=== PATIENT | female | born 1945 | race Caucasian/White ===

== ENCOUNTER 2020-02-21 12:33 | Observation (INO) | payer MEDICARE, BC ==
[2020-02-21] MEDS ORDERED: fentaNYL 100 MCG/2 ML SDV IVPUSH PRN (12:49)
--- NOTE | 2020-02-21 13:01 | EDM.PDOC ---
ED HPI GENERAL MEDICAL PROBLEM - General Chief Complaint: General Stated Complaint: Fall R Shoulder Pain Time Seen by Provider: 02/21/20 12:35 Source of Information: Reports: Patient History Limitations: Reports: No Limitations - History of Present Illness INITIAL COMMENTS - FREE TEXT/NARRATIVE: Quynh is a 74 year old female who presents to ER per EMS after a fall from a chair. Was standing up on the chair hanging [employer] decorations at the cafe in [place]. Lost her balance and fell, landing on her right side. Does have neck pain but admits "may also be from watching TV last night as it was achy this am". Has pain to right shoulder. Was unable to get up from the floor due to shoulder concern. Denies shortness of breath, chest discomfort, nausea or vomiting. No pain in hips or pelvis. Did not hit her head, no loss of consciousness. Fall was witnessed. GCS 15 Onset: Today, Sudden Duration: Minutes:, Constant Location: Reports: Neck, Upper Extremity, Right Quality: Reports: Sharp Severity: Moderate Improves with: Reports: Rest Worsens with: Reports: Movement Associated Symptoms: Denies: Confusion, Chest Pain, Cough, Fever/Chills, Loss of Appetite, Nausea/Vomiting, Shortness of Breath, Syncope Treatments ETL CONSULTANT: Reports: Cervical Collar r shoulder Pain Score (Numeric/FACES): 8 - Related Data Allergies Allergy/AdvReac Type Severity Reaction Status Date / Time cyclobenzaprine Allergy Other Verified 02/21/20 13:06 [From Flexeril] lisinopril Allergy Cough Verified 02/21/20 13:06 Home Meds: Home Meds Levothyroxine 112 mcg PO DAILY 08/15/13 [History] Vit B Cmplx 3/Fa/Vit C/Biotin [Elisabeth-Edwige Rx Tablet] 1 tab PO DAILY 08/15/13 [History] Sertraline [Zoloft] 50 mg PO BEDTIME 09/21/13 [History] ClonazePAM [KlonoPIN] 0.5 mg PO TID PRN 09/23/13 [History] Zolpidem [Ambien] 5 mg PO BEDTIME 09/23/13 [History] Losartan [Cozaar] 50 mg PO DAILY #30 tablet 09/27/13 [Rx] Magnesium Chloride [Mag-64] 64 mg PO DAILY #14 tab.er 09/27/13 [Rx] ED ROS GENERAL - Review of Systems Review Of Systems: See Below Constitutional: Denies: Fever, Chills, Malaise, Weakness, Decreased Appetite HEENT: Denies: Ear Discharge, Ear Pain, Nosebleed, Throat Pain Respiratory: Denies: Shortness of Breath, Cough Cardiovascular: Denies: Chest Pain, Edema, Lightheadedness Endocrine: Denies: Fatigue GI/Abdominal: Denies: Abdominal Pain, Nausea, Vomiting : Reports: No Symptoms Musculoskeletal: Reports: Neck Pain, Shoulder Pain Skin: Reports: Bruising Neurological: Denies: Headache Psychiatric: Reports: No Symptoms ED EXAM, GENERAL - Physical Exam Exam: See Below Exam Limited By: No Limitations General Appearance: Alert, WD/WN, Mild Distress Eye Exam: Bilateral Eye: EOMI, PERRL Ears: Normal External Exam, Normal TMs Nose: Normal Inspection, Normal Mucosa, No Blood Throat/Mouth: Normal Inspection, Normal Oropharynx Head: Atraumatic, Normocephalic Neck: Normal Inspection, Supple, Other (cervical collar intact) Respiratory/Chest: No Respiratory Distress, Lungs Clear, Normal Breath Sounds Cardiovascular: Regular Rate, Rhythm GI/Abdominal: Normal Bowel Sounds, Soft, Non-Tender Extremities: Other (right shoulder deformity, swelling and bruising noted. Able to shrug shoulder but unable to raise arm due to pain. ) Neurological: Alert, Oriented Course - Vital Signs Last Recorded V/S: Last Vital Signs Temp 98.3 F 02/21/20 12:55 Pulse 74 02/21/20 14:01 Resp 18 02/21/20 14:01 BP 157/64 H 02/21/20 14:01 Pulse Ox 96 02/21/20 14:01 - Orders/Labs/Meds Orders: Active Orders 24 hr Category Date Time Status Cervical Spine wo Cont [CT] Stat Exams 02/21/20 12:49 Taken Shoulder Comp Rt [CR] Stat Exams 02/21/20 12:49 Taken fentaNYL [Sublimaze] Med 02/21/20 12:49 Active 50 mcg IVPUSH Q6H PRN Medication Orders Fentanyl (Sublimaze) 50 mcg IVPUSH Q6H PRN PRN Reason: Pain Last Admin: 02/21/20 12:55 Dose: 50 mcg Documented by: CECILLE Labs: Laboratory Tests 02/21/20 Range/Units 13:40 SARS CoV-2 RNA Rapid GERALDO Negative (NEGATIVE) Meds: Medications Generic Name Dose Route Start Last Admin Trade Name Freq PRN Reason Stop Dose Admin Fentanyl 50 mcg 02/21/20 12:49 02/21/20 12:55 Sublimaze IVPUSH 50 mcg Q6H PRN Administration Pain Discontinued Medications Generic Name Dose Route Start Last Admin Trade Name Freq PRN Reason Stop Dose Admin Hydrocodone Bitart/Acetaminophen 1 tab 02/21/20 13:50 02/21/20 14:00 [place] 325-5 Mg PO 02/21/20 13:51 1 tab ONETIME ONE Administration - Re-Assessments/Exams Free Text/Narrative Re-Assessment/Exam: 02/21/20 13:28 Xrays note displaced humerus fracture. Contacted Dr. Barfield, films sent. 02/21/20 14:52 C-Spine cleared. Collar removed. Patient sat up to apply immobilizer, got syncopal, blood pressure dropped to 110 systolic. Laid back down, pale and diaphoretic. Patient was to be discharged home with son but will now be admitted observation. Departure - Departure Time of Disposition: 14:54 Disposition: Refer to Observation Condition: Fair Clinical Impression: Near syncope Right humeral fracture Qualifiers: Encounter type: initial encounter Humerus Location: proximal Fracture type: closed Fracture alignment: displaced - Discharge Information *PRESCRIPTION DRUG MONITORING PROGRAM REVIEWED*: Not Applicable *COPY OF PRESCRIPTION DRUG MONITORING REPORT IN PATIENT ADRIANA: Not Applicable Forms: ED Department Discharge Sepsis Event Note (ED) - Focused Exam Vital Signs: Vital Signs Temp Pulse Resp BP Pulse Ox 02/21/20 14:01 74 18 157/64 H 96 02/21/20 12:55 98.3 F 88 18 179/86 H 98 - Problem List & Annotations (1) Near syncope SNOMED Code(s): 339053135 Code(s): R55 - SYNCOPE AND COLLAPSE Status: Acute Priority: High Current Visit: Yes (2) Right humeral fracture SNOMED Code(s): 13725041 Code(s): S42.301A - UNSP FRACTURE OF SHAFT OF HUMERUS, RIGHT ARM, INIT Status: Acute Priority: High Current Visit: Yes Qualifiers: Encounter type: initial encounter Humerus Location: proximal Fracture type: closed Fracture alignment: displaced - Problem List Review Problem List Initiated/Reviewed/Updated: Yes - My Orders Last 24 Hours: My Active Orders 02/21/20 12:49 Cervical Spine wo Cont [CT] Stat Shoulder Comp Rt [CR] Stat fentaNYL [Sublimaze] 50 mcg IVPUSH Q6H PRN - Assessment/Plan Admission H&P: Please use this note as an admission H&P Last 24 Hours: My Active Orders 02/21/20 12:49 Cervical Spine wo Cont [CT] Stat Shoulder Comp Rt [CR] Stat fentaNYL [Sublimaze] 50 mcg IVPUSH Q6H PRN Assessment:: 1. Near Syncope 2. Humeral Fracture Plan: Patient will be admitted observation for pain control, cardiac monitoring due to fracture and near syncopal episode.
[2020-02-21] MEDS ORDERED: Acetaminophen/HYDROcodone 325-5 MG Tab PO ONE (13:50)
[2020-02-21] MEDS ORDERED: Acetaminophen 325 MG Tab PO PRN (15:42)
[2020-02-21] MEDS ORDERED: Enoxaparin 30 MG/0.3 ML Syringe SUBCUT SCH (15:42)
[2020-02-21] MEDS ORDERED: Non-Formulary Medication 1 Each (Clonazepam [Klonopin] 0.5 MG) PO PRN (15:45)
[2020-02-21] MEDS ORDERED: Sodium Chloride 0.9% 1,000 ML IV SCH (16:00)
[2020-02-21] MEDS ORDERED: Temazepam 15 MG Cap PO PRN (16:51)
[2020-02-21] MEDS: amLODIPine 2.5 MG Tab PO SCH (17:33)
[2020-02-21] MEDS: Acetaminophen/HYDROcodone 325-5 MG Tab PO PRN (18:48)
[2020-02-21] MEDS ORDERED: Non-Formulary Medication 1 Each (Sertraline [Zoloft] 50 MG) PO SCH (20:00)
[2020-02-21] MEDS ORDERED: Doxazosin 2 MG Tab PO SCH (20:00)
[2020-02-21] MEDS ORDERED: Non-Formulary Medication 1 Each (Zolpidem 5 MG) PO SCH (20:00)
[2020-02-21] MEDS ORDERED: PRAVASTATIN 20MG TAB PO SCH (20:00)
[2020-02-21] MEDS ORDERED: traZODone 50 MG Tab PO SCH (20:00)
[2020-02-22] MEDS: Acetaminophen/HYDROcodone 325-5 MG Tab PO PRN ×2 (00:13→07:18)
--- NOTE | 2020-02-22 07:42 | PCM.DCSUM1 ---
Discharge Summary - Hospital Course HPI Initial Comments: Quynh is a 74 yo female who was admitted to the hospital yesterday after sustaining a right humerus fracture. Patient had a near syncopal episode when getting shoulder immobilizer placed and elected to be admitted for pain control/close observation. Quynh had an uneventful night. No syncopal episodes. Pain controlled with hydrocodone. - Discharge Data Discharge Date: 02/22/20 Discharge Disposition: Home, Self-Care 01 Condition: Good - Referral to Home Health Primary Care Physician: Christa Garcia MD - Discharge Diagnosis/Problem(s) (1) Right humeral fracture SNOMED Code(s): 52833509 ICD Code: S42.301A - UNSP FRACTURE OF SHAFT OF HUMERUS, RIGHT ARM, INIT Status: Acute Priority: High Current Visit: Yes Qualifiers: Encounter type: initial encounter Humerus Location: proximal Fracture type: closed Fracture alignment: displaced - Patient Summary/Data Consults: Dr. Adryan Barfield, [facility] at 8:30am today Hospital Course: Quynh had an uneventful hospital stay. No further near syncopal episodes. Pain controlled with hydrocodone. Has been ambulating without difficulty. Shoulder immobilizer provides relief. - Patient Instructions Diet: Usual Diet as Tolerated Activity: As Tolerated Activity, Other: immobilizer to right arm Showering/Bathing: May Shower - Discharge Plan *PRESCRIPTION DRUG MONITORING PROGRAM REVIEWED*: Not Applicable *COPY OF PRESCRIPTION DRUG MONITORING REPORT IN PATIENT ADRIANA: Not Applicable Prescriptions/Med Rec: Hydrocodone/Acetaminophen [Hydrocodone-Acetamin 5-325 mg] 1 tab PO Q4HR PRN #30 tablet PRN Reason: Pain traZODone HCl [Trazodone HCl] 50 mg PO BEDTIME #30 tablet Home Medications: Home Meds Levothyroxine 112 mcg PO DAILY 08/15/13 [History] Vit B Cmplx 3/Fa/Vit C/Biotin [Elisabeth-Edwige Rx Tablet] 1 tab PO DAILY 08/15/13 [History] ClonazePAM [KlonoPIN] 0.5 mg PO TID PRN 09/23/13 [History] Losartan [Cozaar] 50 mg PO DAILY #30 tablet 09/27/13 [Rx] Magnesium Chloride [Mag-64] 64 mg PO DAILY #14 tab.er 09/27/13 [Rx] Doxazosin [Cardura] 2 mg PO BEDTIME 02/21/20 [History] Hydrocodone/Acetaminophen [Hydrocodone-Acetamin 5-325 mg] 1 tab PO Q4HR PRN #30 tablet 02/22/20 [Rx] Metoprolol Succinate [Toprol XL] 50 mg PO DAILY tab.er 02/22/20 [Rx] Temazepam [Restoril] 15 mg PO BEDTIME PRN cap 02/22/20 [Rx] Venlafaxine [Effexor XR] 75 mg PO DAILY cap.er 02/22/20 [Rx] amLODIPine [Norvasc] 5 mg PO DAILY tablet 02/22/20 [Rx] traZODone HCl [Trazodone HCl] 50 mg PO BEDTIME #30 tablet 02/22/20 [Rx] Oxygen Therapy Mode: Room Air Forms: ED Department Discharge - Discharge Summary/Plan Comment DC Time >30 min.: Yes Discharge Summary/Plan Comment: Patient will be discharged this am as she has an appointment at [facility] with orthopedics in [place] at 8:30 for further evaluation/surgical intervention. - General Info Date of Service: 02/22/20 Functional Status: Reports: Pain Controlled, Ambulating. Denies: New Symptoms - Review of Systems General: Reports: No Symptoms HEENT: Reports: No Symptoms Pulmonary: Reports: No Symptoms Cardiovascular: Reports: No Symptoms Gastrointestinal: Reports: No Symptoms Genitourinary: Reports: No Symptoms Musculoskeletal: Reports: Neck Pain, Shoulder Pain Skin: Reports: No Symptoms Neurological: Reports: No Symptoms Psychiatric: Reports: No Symptoms - Patient Data Vitals - Most Recent: Last Vital Signs Temp 99 F 02/22/20 03:21 Pulse 76 02/22/20 03:21 Resp 18 02/22/20 03:21 BP 138/59 L 02/22/20 03:21 Pulse Ox 93 L 02/22/20 03:21 Weight - Most Recent: 189 lb 6 oz Lab Results - Last 24 hrs: Laboratory Results - last 24 hr 02/21/20 Range/Units 13:40 SARS CoV-2 RNA Rapid GERALDO Negative (NEGATIVE) Med Orders - Current: Current Medications Acetaminophen (Tylenol) 650 mg PO Q4H PRN PRN Reason: Pain (Mild 1-3)/fever Hydrocodone Bitart/Acetaminophen ([place] 325-5 Mg) 1 - 2 tab PO Q6H PRN PRN Reason: Pain (moderate 4-6) Last Admin: 02/22/20 07:18 Dose: 1 tab Documented by: Amlodipine Besylate (Norvasc) 5 mg PO DAILY [facility] Last Admin: 02/21/20 17:33 Dose: Not Given Documented by: Doxazosin Mesylate (Cardura) 2 mg PO QPM [facility] Last Admin: 02/21/20 19:32 Dose: 2 mg Documented by: Enoxaparin Sodium (Lovenox) 30 mg SUBCUT Q24H [facility] Last Admin: 02/21/20 16:54 Dose: Not Given Documented by: Fentanyl (Sublimaze) 50 mcg IVPUSH Q6H PRN PRN Reason: Pain Last Admin: 02/21/20 12:55 Dose: 50 mcg Documented by: Sodium Chloride (Normal Saline) 1,000 mls @ 75 mls/hr IV ASDIRECTED [facility] Last Admin: 02/21/20 21:11 Dose: 75 mls/hr Documented by: Losartan Potassium (Cozaar) 100 mg PO DAILY [facility] Metoprolol Succinate (Toprol Xl) 50 mg PO DAILY [facility] Multivitamins/Minerals/Vitamin C (Tab-A-Edwige) 1 tab PO DAILY [facility] Levothyroxine 137 (Mcg Tab) 0 each PO DAILY [facility] Pravastatin 20mg Tab 0 each PO QPM [facility] Last Admin: 02/21/20 19:33 Dose: Not Given Documented by: Temazepam (Restoril) 15 mg PO BEDTIME PRN PRN Reason: Insomnia Trazodone HCl (Trazodone) 50 mg PO QPM [facility] Last Admin: 02/21/20 19:33 Dose: 50 mg Documented by: Venlafaxine HCl (Effexor Xr) 75 mg PO DAILY [facility] Discontinued Medications Hydrocodone Bitart/Acetaminophen ([place] 325-5 Mg) 1 tab PO ONETIME ONE Stop: 02/21/20 13:51 Last Admin: 02/21/20 14:00 Dose: 1 tab Documented by: Magnesium Chloride (Mag-64) 64 mg PO DAILY [facility] Non-Formulary Medication (Clonazepam [Klonopin]) 0.5 mg PO TID PRN PRN Reason: Anxiety Non-Formulary Medication (Sertraline [Zoloft]) 50 mg PO BEDTIME [facility] Non-Formulary Medication (Zolpidem) 5 mg PO BEDTIME [facility] - Exam General: Reports: Alert, Oriented, Cooperative, No Acute Distress, Other (sitting up at edge of hospital bed) Lungs: Reports: Clear to Auscultation, Normal Respiratory Effort Cardiovascular: Reports: Regular Rate, Regular Rhythm GI/Abdominal Exam: Normal Bowel Sounds, Soft Extremities: Normal Capillary Refill, Arm Pain, Limited Range of Motion Skin: Reports: Warm, Dry, Intact Wound/Incisions: Reports: Healing Well Neurological: Reports: No New Focal Deficit Psy/Mental Status: Reports: Alert, Normal Affect, Normal Mood
[2020-02-22] MEDS ORDERED: Magnesium Chloride 64 MG Tab.ER PO SCH (08:00)
[2020-02-22] MEDS ORDERED: Venlafaxine 75 MG Cap.ER PO SCH (08:00)
[2020-02-22] MEDS ORDERED: Metoprolol Succinate 25 MG Tab.ER PO SCH (08:00)
[2020-02-22] MEDS ORDERED: Multivitamin Tab PO SCH (08:00)
[2020-02-22] MEDS ORDERED: LEVOTHYROXINE 137 MCG TAB PO SCH (08:00)
[2020-02-22] MEDS ORDERED: Losartan 100 MG Tab PO SCH (08:00)
[2020-02-22] MEDS: amLODIPine 2.5 MG Tab PO SCH (08:05)
== END 2020-02-22 07:45 | disposition home or self-care (01) ==
LOC: CC.ED 12:33 → CC.MS 15:06 → UNDOADMOB 15:09 → CC.MS 15:09
PROVIDERS: ADMIT Physician Assistant Medical; ATTEND Family Medicine
DX: S42.301A Unspecified fracture of shaft of humerus, right arm, initial encounter for closed fracture (principal); R55 Syncope and collapse; Z20.828 Contact with and (suspected) exposure to other viral communicable diseases; W07.XXXA Fall from chair, initial encounter; Y93.89 Activity, other specified; Y92.9 Unspecified place or not applicable; Z88.8 Allergy status to other drugs, medicaments and biological substances; Z79.899 Other long term (current) drug therapy
CPT/HCPCS: 72125; 73030-RT; 96374; 99217; 99220; 99285-25; A9270-GY; G0378; J3010; J7030; U0002